=== PATIENT | female | born 2005 | race African-American/Black ===

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

== ENCOUNTER 2024-10-16 09:56 | Emergency (ER) | payer OTHER ==
[2024-10-16] MEDS ORDERED: Sodium Chloride 0.9% 10 ML Syringe FLUSH PRN (10:26)
[2024-10-16] MEDS: methylPREDNISolone Sodium Succinate 125 MG/2 ML SDV IVPUSH ONE (10:33)
[2024-10-16] MEDS: Albuterol/Ipratropium 3.0-0.5 MG/3 ML Neb Soln NEB ONE (11:14)
[2024-10-16 11:52] VITALS: BP 116/67; PULSE 98
== END 2024-10-16 11:49 | disposition home or self-care (01) ==
LOC: JD.ED 09:56
DX: J45.901 Unspecified asthma with (acute) exacerbation (principal); Z91.012 Allergy to eggs; Z91.048 Other nonmedicinal substance allergy status; Z91.018 Allergy to other foods; Z79.51 Long term (current) use of inhaled steroids; Z79.899 Other long term (current) drug therapy
CPT/HCPCS: 71046; 94640; 96374; 99285; J2919; J7620; 99283; A9270-GY